=== PATIENT | female | born 1985 | race Native Hawaiian/Other Pacific Islander ===

== ENCOUNTER 2024-03-06 18:04 | Emergency (ER) | payer SELFPAY ==
[~2024-03-06] VITALS: Ht 162.6 cm; Wt 89.1 kg
[2024-03-06] MEDS ORDERED: SYNJARDY 12.5-1 EACH PO (18:20)
[2024-03-06] MEDS ORDERED: QUETIAPINE FUM300 M1 PO (18:21)
[2024-03-06] MEDS ORDERED: OMEPRAZOLE20 MG PO (18:21)
[2024-03-06] MEDS ORDERED: BENZTROPINE MESY1 MG PO ×2 (18:22→21:48)
[2024-03-06] MEDS ORDERED: DOXEPIN HCL50 MG PO (18:22)
[2024-03-06] MEDS ORDERED: HYDROXYZINE HCL50 MG PO (18:22)
[2024-03-06] MEDS ORDERED: OLANZapine 10 MG VIAL IM ONE (19:30)
[2024-03-06 20:00] LABS: BASOPHILS 0.6 % (0-2); EOSINOPHILS 0.7 % (0-6); HEMATOCRIT 44.9 % (35.0-50.0); HEMOGLOBIN 15.7 g/dL (12.0-18.0); LYMPHOCYTES 30.7 % (24-44); MCV 88.5 fl (81-99); MONOCYTES 6.9 % (0-12); NEUTROPHILS 61.1 % (39-80); PLATELET COUNT 327 K/uL (140-440); RBC 5.07 M/ul (4.3-5.7); RDW 13.3 (10.5-15.0)
[2024-03-06 20:07] LABS: BILIRUBIN, URINE NEGATIVE (negative); BLOOD/HGB, URINE NEGATIVE (Negative); KETONE, URINE NEGATIVE (Negative); LEUK ESTERASE, URINE NEGATIVE (negative); NITRITE, URINE NEGATIVE (negative); PH, URINE 5.5 (5-7)
[2024-03-06 20:24] LABS: ACETAMINOPHEN 0 ug/mL (10-30); ALBUMIN 4.1 g/dL (3.4-5.0); ALBUMIN/GLOBULIN RATIO 1.03 (1.1-2.4); ALCOHOL, MEDICAL <3 ng/dL (<3); ALKALINE PHOSPHATASE 88 U/L (46-116); ALT (SGPT) 16 U/L (14-59); ANION GAP 16.5 (7-21); AST (SGOT) 10 U/L (15-37); BILIRUBIN, TOTAL 0.4 ng/dL (0.2-1.0); BUN/CREATININE RATIO 10.81 (6.0-28.6); CALCIUM 9.2 mg/dL (8.5-10.1); CARBON DIOXIDE 25 mmol/L (21-32); CHLORIDE 101 mmol/L (98-107); CREATININE, SERUM 1.11 mg/dL (0.55-1.02); GLOMERULAR FILTRATION RATE,EST 64 mL/min (>60); POTASSIUM 3.5 mmol/L (3.5-5.1); PROTEIN, TOTAL 8.1 g/dL (6.4-8.2); TSH, 3RD GENERATION 1.373 uIU/mL (0.358-3.740); UREA NITROGEN 12 mg/dL (7-18)
[2024-03-06 20:26] LABS: AMPHETAMINES, URINE NEGATIVE (NEGATIVE); BARBITURATES, URINE NEGATIVE (NEGATIVE); BENZODIAZEPINE, URINE NEGATIVE (NEGATIVE); BUPRENORPHINE, URINE NEGATIVE (NEGATIVE); CANNABINOID, URINE NEGATIVE (NEGATIVE); COCAINE, URINE NEGATIVE (NEGATIVE); ECSTASY, URINE POSITIVE (NEGATIVE); FENTANYL, URINE NEGATIVE (NEGATIVE); METHADONE, URINE NEGATIVE (NEGATIVE); OPIATES, URINE NEGATIVE (NEGATIVE); OXYCODONE, URINE NEGATIVE (NEGATIVE); PHENCYCLIDINE, URINE NEGATIVE (NEGATIVE)
[2024-03-06] MEDS ORDERED: ZYRTEC10 MG PO (21:44)
[2024-03-06] MEDS ORDERED: SEROQUEL300 MG PO (21:44)
[2024-03-06] MEDS ORDERED: QUETIAPINE FUMARATE 100 MG TAB PO ONE (21:45)
[2024-03-06 21:57] VITALS: BP 135/101
[2024-03-06] MEDS ORDERED: BENZTROPINE MESYLATE 1 MG TAB PO ONE (22:00)
== END 2024-03-06 21:58 | disposition home or self-care (01) ==
LOC: ED 18:04
PROVIDERS: Family Medicine
DX: F25.9 Schizoaffective disorder, unspecified (principal); E11.9 Type 2 diabetes mellitus without complications; Z79.899 Other long term (current) drug therapy
CPT/HCPCS: 36415; 80053; 80307; 81003; 84443; 84703; 85025; 96372; 99284-25; A9270; G0480

== ENCOUNTER 2024-03-21 10:26 | Emergency (ER) | payer OTHER ==
[~2024-03-21] VITALS: Ht 162.6 cm; Wt 92.6 kg
[~2024-03-21 10:26] MED LIST: BENZTROPINE MESY1 MG PO; DOXEPIN HCL50 MG PO; HYDROXYZINE HCL50 MG PO; OMEPRAZOLE20 MG PO; QUETIAPINE FUM300 M1 PO; SEROQUEL300 MG PO; SYNJARDY 12.5-1 EACH PO; ZYRTEC10 MG PO
--- OUTSIDE RECORDS SUMMARY | 2024-03-21 10:30 | XMS ---
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 E.D. VISIT COUNT ([address] [facility] 2 MARIA E Ribeiro TOTAL 7 NOTE: Visits indicate total known visits. ED/UCC VISIT TRACKING (12 MO.) 03/21/2024 10:27 [facility] Man [place] TYPE: Emergency COMPLAINT: - PSYCHOLOGICAL EVALUATION 03/06/2024 18:04 [facility] Man [place] TYPE: Emergency COMPLAINT: - MEDICAL CLEARANCE DIAGNOSES: - Other residential (current) drug therapy - Schizoaffective disorder, unspecified - Type 2 diabetes mellitus without complications 12/24/2023 21:44 [facility] ID TYPE: Emergency COMPLAINT: - ear pain DIAGNOSES: - Otalgia, left ear - Swimmer's ear, left ear - ear pain - Earache 12/03/2023 11:01 [facility] ID TYPE: Emergency COMPLAINT: - vomiting DIAGNOSES: - Constipation, unspecified - Unspecified abdominal pain - Abdominal Pain - vomiting 11/22/2023 11:07 [facility] ID TYPE: Emergency COMPLAINT: - mhe, left thumb pain DIAGNOSES: - Other chronic pain - Pain in left finger(s) - Schizoaffective disorder, unspecified - Mental Health Problem - mhe, left thumb pain 10/28/2023 16:42 [facility] ID TYPE: Emergency COMPLAINT: - poss allergic reaction throat swelling DIAGNOSES: - Allergy, unspecified, initial encounter - Allergic Reaction - poss allergic reaction throat swelling 03/29/2023 18:04 [facility] TYPE: Emergency COMPLAINT: - head pain DIAGNOSES: - Migraine, unspecified, not intractable, without status migrainosus - Migraine, unspecified, not intractable, without status migrainosus - head pain - Headache INPATIENT VISIT TRACKING (12 MO.) No inpatient visits to display in this time frame [email or web address]
[2024-03-21] MEDS ORDERED: OLANZapine 10 MG TABDIS PO ONE (11:00)
[2024-03-21 11:22] LABS: BASOPHILS 0.7 % (0-2); EOSINOPHILS 0.7 % (0-6); HEMATOCRIT 41.5 % (35.0-50.0); HEMOGLOBIN 14.4 g/dL (12.0-18.0); LYMPHOCYTES 23.9 % (24-44); MCH 30.8 (27-36); MCHC 34.8 g/dl (30-36); MCV 88.5 fl (81-99); MONOCYTES 5.7 % (0-12); PLATELET COUNT 270 K/uL (140-440); RBC 4.69 M/ul (4.3-5.7); RDW 13.2 (10.5-15.0)
[2024-03-21 11:43] LABS: ACETAMINOPHEN 0 ug/mL (10-30); ALBUMIN 3.5 g/dL (3.4-5.0); ALBUMIN/GLOBULIN RATIO 0.88 (1.1-2.4); ALCOHOL, MEDICAL <3 ng/dL (<3); ALKALINE PHOSPHATASE 91 U/L (46-116); ALT (SGPT) 16 U/L (14-59); ANION GAP 10.7 (7-21); AST (SGOT) 7 U/L (15-37); BILIRUBIN, TOTAL 0.3 ng/dL (0.2-1.0); BUN/CREATININE RATIO 14.54 (6.0-28.6); CALCIUM 8.9 mg/dL (8.5-10.1); CARBON DIOXIDE 30 mmol/L (21-32); CHLORIDE 99 mmol/L (98-107); GLOMERULAR FILTRATION RATE,EST 65 mL/min (>60); POTASSIUM 3.7 mmol/L (3.5-5.1); PROTEIN, TOTAL 7.5 g/dL (6.4-8.2); SALICYLATE 2.9 mg/dL (2.8-20.0); TSH, 3RD GENERATION 1.813 uIU/mL (0.358-3.740); UREA NITROGEN 16 mg/dL (7-18)
[2024-03-21 11:54] LABS: AMPHETAMINES, URINE NEGATIVE (NEGATIVE); BARBITURATES, URINE NEGATIVE (NEGATIVE); BENZODIAZEPINE, URINE NEGATIVE (NEGATIVE); BUPRENORPHINE, URINE NEGATIVE (NEGATIVE); CANNABINOID, URINE NEGATIVE (NEGATIVE); COCAINE, URINE NEGATIVE (NEGATIVE); ECSTASY, URINE NEGATIVE (NEGATIVE); FENTANYL, URINE NEGATIVE (NEGATIVE); METHADONE, URINE NEGATIVE (NEGATIVE); OPIATES, URINE NEGATIVE (NEGATIVE); OXYCODONE, URINE NEGATIVE (NEGATIVE); PHENCYCLIDINE, URINE NEGATIVE (NEGATIVE)
[2024-03-21 13:31] LABS: BILIRUBIN, URINE NEGATIVE (negative); BLOOD/HGB, URINE LARGE (Negative); KETONE, URINE TRACE (Negative); LEUK ESTERASE, URINE NEGATIVE (negative); NITRITE, URINE NEGATIVE (negative)
[2024-03-21 13:32] LABS: CRYSTALS, URINE NONE SEEN (0-1+); EPITHELIAL CELLS, URINE SQUAMOUS 3+ /lpf (0-1+); RED BLOOD CELLS, URINE 41-50 /hpf (0-5)
[2024-03-21 13:33] LABS: BACTERIA, URINE 2+ /hpf (negative); CASTS, URINE NONE SEEN \\lpf; COLLECTION TYPE, URINE CLEAN CATCH; REFLEX CULTURE, URINE No (No)
[2024-03-21 16:36] LABS: SALICYLATE 2.6 mg/dL (2.8-20.0)
[2024-03-22] MEDS ORDERED: OLANZapine 10 MG TABDIS PO ONE (09:15)
[2024-03-22 10:48] VITALS: BP 100/72
--- NOTE | 2024-03-23 20:42 | EKG ---
[facility] [address] [facility] [place] [address] Signed Normal sinus rhythm Low voltage QRS Borderline ECG When compared with ECG of 21-MAR-2024 11:27, (Unconfirmed) No significant change was found Confirmed by Yesenia Salinas MD ([id number]) on 03/23/2024 8:42:38 PM Electronically Signed By: YESENIA SALINAS DO 03/23/242041 PATIENT NAME: RUBY STAFFORD Electrocardiogram DATE OF : 81 PHYSICIAN: YESENIA SALINAS DO REPORT #: [id number] REPORT IS CONFIDENTIAL AND NOT TO BE RELEASED WITHOUT AUTHORIZATION
--- NOTE | 2024-03-28 14:26 | EKG ---
[facility] [address] [facility] [place], [place] [address] Signed EKG completed, results pending confirmation PATIENT NAME: RUBY STAFFORD Electrocardiogram DATE OF : 81 PHYSICIAN: PRELIMINARY REPORT #: [id number] REPORT IS CONFIDENTIAL AND NOT TO BE RELEASED WITHOUT AUTHORIZATION
== END 2024-03-22 09:55 | disposition short-term general hospital (02) ==
LOC: ED 10:26
PROVIDERS: Emergency Medicine
DX: F25.9 Schizoaffective disorder, unspecified (principal); E11.65 Type 2 diabetes mellitus with hyperglycemia; Z88.5 Allergy status to narcotic agent; Z88.8 Allergy status to other drugs, medicaments and biological substances; Z79.899 Other long term (current) drug therapy; Z79.84 Long term (current) use of oral hypoglycemic drugs; Z11.52 Encounter for screening for COVID-19
CPT/HCPCS: 36415; 80053; 80307; 81001; 84443; 84703; 85025; 93005; 93010; 99285; A9270; G0480; U0002

== ENCOUNTER 2024-05-25 13:02 | Emergency (ER) | payer OTHER ==
[~2024-05-25] VITALS: Ht 162.6 cm; Wt 94.3 kg
[~2024-05-25 13:02] MED LIST changes: -QUETIAPINE FUM300 M1 PO; +QUETIAPINE FUM400 MG PO
[2024-05-25] MEDS ORDERED: OMEPRAZOLE40 MG PO (13:14)
[2024-05-25] MEDS ORDERED: PRAZOSIN HCL5 MG PO (13:14)
[2024-05-25] MEDS ORDERED: GABAPENTIN600 MG PO (13:15)
[2024-05-25] MEDS ORDERED: DAPAGLIFLOZIN5 MG PO (13:15)
[2024-05-25 13:43] LABS: BILIRUBIN, URINE NEGATIVE (negative); BLOOD/HGB, URINE NEGATIVE (Negative); KETONE, URINE NEGATIVE (Negative); LEUK ESTERASE, URINE NEGATIVE (negative); NITRITE, URINE NEGATIVE (negative); PH, URINE 5.5 (5-7)
[2024-05-25 13:55] LABS: RDW 14.2 (10.5-15.0)
[2024-05-25 13:57] LABS: BASOPHILS 0.6 % (0-2); HEMATOCRIT 41.2 % (35.0-50.0); MCH 29.8 (27-36); MCV 87.8 fl (81-99); MONOCYTES 5.1 % (0-12); NEUTROPHILS 61.3 % (39-80); PLATELET COUNT 329 K/uL (140-440); RBC 4.69 M/ul (4.3-5.7)
[2024-05-25 13:57] LABS: AMPHETAMINES, URINE NEGATIVE (NEGATIVE); BARBITURATES, URINE NEGATIVE (NEGATIVE); BENZODIAZEPINE, URINE NEGATIVE (NEGATIVE); BUPRENORPHINE, URINE NEGATIVE (NEGATIVE); CANNABINOID, URINE NEGATIVE (NEGATIVE); COCAINE, URINE NEGATIVE (NEGATIVE); ECSTASY, URINE NEGATIVE (NEGATIVE); FENTANYL, URINE NEGATIVE (NEGATIVE); METHADONE, URINE NEGATIVE (NEGATIVE); OPIATES, URINE NEGATIVE (NEGATIVE); OXYCODONE, URINE NEGATIVE (NEGATIVE); PHENCYCLIDINE, URINE NEGATIVE (NEGATIVE)
[2024-05-25 14:19] LABS: ACETAMINOPHEN 0 ug/mL (10-30); ALBUMIN 3.6 g/dL (3.4-5.0); ALBUMIN/GLOBULIN RATIO 0.88 (1.1-2.4); ALCOHOL, MEDICAL <3 ng/dL (<3); ALKALINE PHOSPHATASE 108 U/L (46-116); ALT (SGPT) 15 U/L (14-59); ANION GAP 14.2 (7-21); AST (SGOT) 9 U/L (15-37); BILIRUBIN, TOTAL 0.2 ng/dL (0.2-1.0); CARBON DIOXIDE 26 mmol/L (21-32); CHLORIDE 102 mmol/L (98-107); CREATININE, SERUM 1.16 mg/dL (0.55-1.02); GLOMERULAR FILTRATION RATE,EST 61 mL/min (>60); POTASSIUM 4.2 mmol/L (3.5-5.1); PROTEIN, TOTAL 7.7 g/dL (6.4-8.2); SALICYLATE 2.5 mg/dL (2.8-20.0); TSH, 3RD GENERATION 1.125 uIU/mL (0.358-3.740); UREA NITROGEN 13 mg/dL (7-18)
[2024-05-25] MEDS ORDERED: HYDROXYZINE PAM50 MG PO (18:21)
[2024-05-25] MEDS ORDERED: ZYPREXA ZYDIS5 MG PO (18:26)
[2024-05-25] MEDS ORDERED: hydrOXYzine pamoate 50 MG CAP PO PRN (18:45)
[2024-05-25] MEDS ORDERED: GABAPENTIN 300 MG CAP PO SCH (21:00)
[2024-05-25] MEDS ORDERED: PRAZOSIN HCL 5 MG CAP PO SCH (21:00)
[2024-05-25] MEDS ORDERED: BENZTROPINE MESYLATE 1 MG TAB PO SCH (21:00)
[2024-05-25] MEDS ORDERED: PATIENT'S OWN MEDICATION(S) ORDER PO SCH (21:00)
[2024-05-25] MEDS ORDERED: QUETIAPINE FUMARATE 100 MG TAB PO SCH (21:00)
[2024-05-26] MEDS ORDERED: OLANZapine 10 MG TABDIS PO SCH (08:00)
[2024-05-26] MEDS ORDERED: EMPAGLIFLOZIN 25 MG TAB PO SCH ×2 (09:00→10:00)
[2024-05-26] MEDS ORDERED: PATIENT'S OWN MEDICATION(S) ORDER PO SCH (09:00)
[2024-05-26] MEDS ORDERED: PANTOPRAZOLE SODIUM 40 MG TABEC PO SCH (09:00)
[2024-05-26] MEDS ORDERED: metFORMIN HCL 500 MG TAB PO SCH ×2 (09:00→10:00)
[2024-05-26 13:46] VITALS: BP 120/77
--- NOTE | 2024-05-28 20:25 | EKG ---
[facility] [address] [facility] [place] [address] Signed Normal sinus rhythm Normal ECG When compared with ECG of 21-MAR-2024 11:27, Nonspecific T wave abnormality no longer evident in Inferior leads T wave amplitude has increased in Anterior leads Confirmed by Yesenia Salinas DO ([id number]) on 05/28/2024 8:25:08 PM Electronically Signed By: YESENIA SALINAS DO 05/28/242024 PATIENT NAME: RUBY STAFFORD Electrocardiogram DATE OF : 81 PHYSICIAN: YESENIA SALINAS DO REPORT #: [id number] REPORT IS CONFIDENTIAL AND NOT TO BE RELEASED WITHOUT AUTHORIZATION
== END 2024-05-26 13:48 ==
LOC: ED 13:02
PROVIDERS: Emergency Medicine
DX: F20.9 Schizophrenia, unspecified (principal); E11.9 Type 2 diabetes mellitus without complications; Z88.5 Allergy status to narcotic agent; Z88.8 Allergy status to other drugs, medicaments and biological substances; Z79.899 Other long term (current) drug therapy
CPT/HCPCS: 36415; 80053; 80307; 81003; 84443; 84703; 85025; 93005; 93010; 99285; A9270; G0480; U0002